=== PATIENT | male | born 1935 | race Caucasian/White ===

== ENCOUNTER 2017-04-06 13:35 | Emergency (ER) | payer OTHER ==
[~2017-04-06] VITALS: Ht 188 cm; Wt 117.8 kg
[2017-04-06 14:26] LABS: INTER. NORMALIZED RATIO 2.5; PROTHROMBIN TIME 28.7 SEC (10.2-12.9)
[2017-04-06 14:59] VITALS: BP 200/82
== END 2017-04-06 15:00 | disposition home or self-care (01) ==
LOC: EME 13:35
PROVIDERS: Nurse Practitioner Family
DX: S40.022A Contusion of left upper arm, initial encounter (principal); V49.40XA Driver injured in collision with unspecified motor vehicles in traffic accident, initial encounter; I10 Essential (primary) hypertension; I25.2 Old myocardial infarction; I48.91 Unspecified atrial fibrillation; Z79.01 Long term (current) use of anticoagulants
CPT/HCPCS: 73060; 85610; 99281; 99283

== ENCOUNTER 2017-12-26 13:12 | Inpatient (IN) | payer OTHER ==
[2017-12-26] VITALS (8 sets, daily range): BP systolic 126–138; BP diastolic 49–64
[~2017-12-26] VITALS: Ht 185.4 cm; Wt 108.5 kg
[2017-12-26 14:28] LABS: BASOPHIL (%) 0.3 % (0-1); EOSINOPHIL (%) 0.3 % (0-5); HEMATOCRIT 22.9 % (38.0-50.0); HEMOGLOBIN 7.1 G/DL (12.5-16.6); IMMATURE GRANULOCYTE (%) 0.6 % (0.0-0.7); LYMPHOCYTE (%) 10.6 % (15-42); LYMPHOCYTE COUNT 1.2 K/uL (1.0-2.8); MCH 23.9 PG (29.0-34.0); MCV 77.1 FL (86-99); MONOCYTE (%) 5.9 % (3-12); MONOCYTE COUNT 0.7 K/uL (0-0.8); NEUTROPHIL (%) 82.3 % (45-76); NEUTROPHIL COUNT 9.2 K/uL (1.8-6.4); PLATELET COUNT 277 K/uL (156-360); RBC DIS.WIDTH-CV 16.6 % (11.8-14.6); RBC DIS.WIDTH-SD 46.7 % (39-53); RED BLOOD COUNT 2.97 M/uL (4.00-5.50); WHITE BLOOD COUNT 11.2 K/uL (4.1-10.2)
[2017-12-26 14:37] LABS: CHLORIDE 108 mEq/L (99-109); INTER. NORMALIZED RATIO 3.4; SODIUM 138 mEq/L (136-147)
[2017-12-26 14:39] LABS: GLUCOSE 119 mg/dL (70-99)
[2017-12-26 14:40] LABS: PTT 35.3 SEC (25-37)
[2017-12-26 14:43] LABS: CREATININE 1.6 mg/dL (0.6-1.3); GFR ESTIMATE (CALCULATED) 44 mL/min/ (58.99-99999)
[2017-12-26 14:44] LABS: UREA NITROGEN (BUN) 78 mg/dL (9-23)
[2017-12-26 14:48] LABS: TROP-I INTERPRETATION NEGATIVE; TROPONIN-I 0.02 ng/mL (0.0-0.30)
[2017-12-26 16:38] LABS: APPEARANCE CLEAR ((CLEAR)); BILIRUBIN NEGATIVE; BLOOD NEGATIVE; COLOR STRAW ((YELLOW)); GLUCOSE (STRIP) NEGATIVE; KETONES 5; LEUKOCYTES NEGATIVE; NITRITE NEGATIVE; PROTEIN (STRIP) NEGATIVE; SPECIFIC GRAVITY 1.017 (1.000-1.030); UCUL ADDED? NO; UROBILINOGEN 0.2 MG/DL (0.2-1.0)
[2017-12-26] MEDS ORDERED: COUMADIN6 MG PO (16:41)
[2017-12-26] MEDS ORDERED: SIMVASTATIN40 MG PO (16:41)
[2017-12-26] MEDS ORDERED: ZESTRIL40 MG PO (16:42)
[2017-12-26] MEDS ORDERED: ALLOPURINOL100 MG PO (16:42)
[2017-12-26] MEDS ORDERED: FUROSEMIDE40 MG PO (16:42)
[2017-12-26] MEDS ORDERED: KLOR-CON M2020 MEQ PO (16:42)
[2017-12-26] MEDS ORDERED: NIFEDIPINE ER60 MG PO (16:42)
[2017-12-26] MEDS ORDERED: ALEVE220 MG PO (16:44)
[2017-12-26] MEDS ORDERED: OSTEO BI-FLEX1 EAC1 PO (16:44)
[2017-12-26] MEDS ORDERED: ADULT ASPIRIN R81 MG PO (16:44)
[2017-12-26] MEDS ORDERED: POTASSIUM GLU2.5 ME1 PO (16:44)
[2017-12-27] VITALS (41 sets, daily range): BP systolic 88–181; BP diastolic 49–92
[2017-12-27 01:30] LABS: HEMATOCRIT 21.7 % (38.0-50.0)
[2017-12-27 01:31] LABS: HEMOGLOBIN 6.9 G/DL (12.5-16.6)
[2017-12-27 09:09] LABS: BASOPHIL (%) 0.3 % (0-1); BASOPHIL COUNT 0.1 K/uL (0-0.1); EOSINOPHIL (%) 0.2 % (0-5); HEMATOCRIT 23.6 % (38.0-50.0); HEMOGLOBIN 7.7 G/DL (12.5-16.6); IMMATURE GRANULOCYTE (%) 0.9 % (0.0-0.7); LYMPHOCYTE (%) 17.7 % (15-42); LYMPHOCYTE COUNT 3.2 K/uL (1.0-2.8); MCH 26.3 PG (29.0-34.0); MCHC 32.6 G/DL (30.0-36.0); MCV 80.5 FL (86-99); MONOCYTE (%) 7.4 % (3-12); MONOCYTE COUNT 1.3 K/uL (0-0.8); NEUTROPHIL (%) 73.5 % (45-76); NEUTROPHIL COUNT 13.2 K/uL (1.8-6.4); PLATELET COUNT 279 K/uL (156-360); RBC DIS.WIDTH-CV 17.1 % (11.8-14.6); RBC DIS.WIDTH-SD 49.4 % (39-53); RED BLOOD COUNT 2.93 M/uL (4.00-5.50); WHITE BLOOD COUNT 17.9 K/uL (4.1-10.2)
[2017-12-27 09:53] LABS: ALBUMIN 2.6 G/DL (3.2-4.8); ALKALINE PHOSPHATASE 36 IU/L (3-129); ALT (GPT) 8 IU/L (3-49); AST (GOT) 10 IU/L (2-34); CHLORIDE 109 MEQ/L (99-109); CREATININE 1.7 MG/DL (0.6-1.3); GFR ESTIMATE (CALCULATED) 41 mL/min/ (58.99-99999); GLUCOSE 146 mg/dL (70-99); POTASSIUM 5.3 MEQ/L (3.7-5.4); SODIUM 136 MEQ/L (136-147); TOTAL BILIRUBIN 0.4 MG/DL (0.0-1.0); TOTAL PROTEIN 4.4 G/DL (6.4-8.3); UREA NITROGEN (BUN) 80 mg/dL (9-23)
[2017-12-27 10:07] LABS: INTER. NORMALIZED RATIO 4.9
[2017-12-27 12:26] LABS: HEMATOCRIT 21.8 % (38.0-50.0); MCV 81.6 FL (86-99)
[2017-12-27 12:27] LABS: HEMOGLOBIN 6.9 G/DL (12.5-16.6)
[2017-12-27 15:27] LABS: HEMOGLOBIN 6.5 G/DL (12.5-16.6)
[2017-12-27 15:31] LABS: INTER. NORMALIZED RATIO 2.1
[2017-12-27 18:30] LABS: HEMATOCRIT 20.4 % (38.0-50.0); MCV 80.6 FL (86-99)
[2017-12-27 18:33] LABS: HEMOGLOBIN 6.7 G/DL (12.5-16.6)
[2017-12-27 18:47] LABS: INTER. NORMALIZED RATIO 1.8
[2017-12-27 23:12] LABS: BICARBONATE 19.2 mEq/L (22-26); CARBOXY HGB 1.3 % (0-5); COMMENTS - BLOOD GASES NA.C+; DEVICE 840; FI02 100 %; INSPIRATION TIME 0.8 seconds; MECHANICAL RATE 16 resp/min; METHEMOGLOBIN 1.6 % (0-1.5); MODE AC/VC+; PCO2 34 mm Hg (35-45); PEEP 5 CM/H20; PO2 370 mm Hg (80-100); SITE RR; TIDAL VOLUME 450 ML; TOTAL RESP RATE 23 resp/min; pH 7.36 (7.35-7.45)
[2017-12-27 23:13] LABS: BASE EXCESS -5.7 mEq/L (-3 to +3)
[2017-12-27 23:48] LABS: INTER. NORMALIZED RATIO 1.6
[2017-12-27 23:51] LABS: PTT 20.8 SEC (25-37)
[2017-12-28] VITALS (34 sets, daily range): BP systolic 87–151; BP diastolic 33–69
[2017-12-28 00:38] LABS: TRIGLYCERIDES 197 MG/DL (Normal: <150)
[2017-12-28 03:24] LABS: HEMATOCRIT 24.3 % (38.0-50.0); HEMOGLOBIN 8.2 G/DL (12.5-16.6); MCH 27.2 PG (29.0-34.0); MCHC 33.7 G/DL (30.0-36.0); MCV 80.7 FL (86-99); NRBC (%) 0.1 /100 WBC (0-0); RBC DIS.WIDTH-CV 16.7 % (11.8-14.6); RBC DIS.WIDTH-SD 48.5 % (39-53); RED BLOOD COUNT 3.01 M/uL (4.00-5.50)
[2017-12-28 05:08] LABS: PLAT.SUFFICIENCY ADEQUATE
[2017-12-28 05:22] LABS: PLATELET COUNT 177 K/uL (156-360)
[2017-12-28 06:49] LABS: BASOPHIL (%) 0.3 % (0-1); EOSINOPHIL (%) 0.5 % (0-5); EOSINOPHIL COUNT 0.1 K/uL (0-0.3); HEMATOCRIT 22.3 % (38.0-50.0); HEMOGLOBIN 7.2 G/DL (12.5-16.6); LYMPHOCYTE (%) 11.4 % (15-42); LYMPHOCYTE COUNT 1.7 K/uL (1.0-2.8); MCH 26.4 PG (29.0-34.0); MCHC 32.3 G/DL (30.0-36.0); MCV 81.7 FL (86-99); MONOCYTE (%) 11.8 % (3-12); MONOCYTE COUNT 1.7 K/uL (0-0.8); NRBC (%) 0.3 /100 WBC (0-0); PLATELET COUNT 167 K/uL (156-360); RBC DIS.WIDTH-CV 16.9 % (11.8-14.6); RBC DIS.WIDTH-SD 49.3 % (39-53); RED BLOOD COUNT 2.73 M/uL (4.00-5.50); WHITE BLOOD COUNT 14.6 K/uL (4.1-10.2)
[2017-12-28 06:52] LABS: INTER. NORMALIZED RATIO 1.4
[2017-12-28 06:54] LABS: PTT 25.8 SEC (25-37)
[2017-12-28 07:08] LABS: ALBUMIN 2.7 G/DL (3.2-4.8); ALKALINE PHOSPHATASE 41 IU/L (3-129); ALT (GPT) 9 IU/L (3-49); AST (GOT) 11 IU/L (2-34); CHLORIDE 107 MEQ/L (99-109); CREATININE 2.1 MG/DL (0.6-1.3); GFR ESTIMATE (CALCULATED) 32 mL/min/ (58.99-99999); GLUCOSE 114 mg/dL (70-99); POTASSIUM 4.4 MEQ/L (3.7-5.4); SODIUM 139 MEQ/L (136-147); TOTAL PROTEIN 4.6 G/DL (6.4-8.3); UREA NITROGEN (BUN) 81 mg/dL (9-23)
[2017-12-28 07:09] LABS: TOTAL BILIRUBIN 0.8 MG/DL (0.0-1.0)
[2017-12-28 12:31] LABS: HEMOGLOBIN 7.6 G/DL (12.5-16.6); MCV 82.7 FL (86-99)
[2017-12-28 18:44] LABS: HEMATOCRIT 25.5 % (38.0-50.0); HEMOGLOBIN 8.2 G/DL (12.5-16.6); MCV 83.3 FL (86-99)
[2017-12-29] VITALS (20 sets, daily range): BP systolic 112–156; BP diastolic 46–75
[2017-12-29 00:58] LABS: HEMATOCRIT 24.3 % (38.0-50.0); HEMOGLOBIN 8.2 G/DL (12.5-16.6); MCV 82.7 FL (86-99)
[2017-12-29 05:34] LABS: BASOPHIL (%) 0.6 % (0-1); BASOPHIL COUNT 0.1 K/uL (0-0.1); EOSINOPHIL (%) 1.6 % (0-5); EOSINOPHIL COUNT 0.2 K/uL (0-0.3); HEMATOCRIT 25.1 % (38.0-50.0); HEMOGLOBIN 8.2 G/DL (12.5-16.6); LYMPHOCYTE (%) 15.4 % (15-42); LYMPHOCYTE COUNT 1.4 K/uL (1.0-2.8); MCH 27.5 PG (29.0-34.0); MCHC 32.7 G/DL (30.0-36.0); MCV 84.2 FL (86-99); MONOCYTE (%) 12.4 % (3-12); MONOCYTE COUNT 1.2 K/uL (0-0.8); NEUTROPHIL COUNT 6.4 K/uL (1.8-6.4); PLATELET COUNT 143 K/uL (156-360); RBC DIS.WIDTH-SD 52.1 % (39-53); RED BLOOD COUNT 2.98 M/uL (4.00-5.50); WHITE BLOOD COUNT 9.3 K/uL (4.1-10.2)
[2017-12-29 05:51] LABS: INTER. NORMALIZED RATIO 1.3
[2017-12-29 05:54] LABS: PTT 25.2 SEC (25-37)
[2017-12-29 06:06] LABS: ALBUMIN 2.8 G/DL (3.2-4.8); ALKALINE PHOSPHATASE 48 IU/L (3-129); ALT (GPT) 8 IU/L (3-49); AST (GOT) 10 IU/L (2-34); CHLORIDE 108 MEQ/L (99-109); GFR ESTIMATE (CALCULATED) 34 mL/min/ (58.99-99999); GLUCOSE 150 mg/dL (70-99); POTASSIUM 4.6 MEQ/L (3.7-5.4); SODIUM 141 MEQ/L (136-147); TOTAL BILIRUBIN 0.8 MG/DL (0.0-1.0); TOTAL PROTEIN 4.8 G/DL (6.4-8.3); UREA NITROGEN (BUN) 54 mg/dL (9-23)
[2017-12-29 11:52] LABS: HEMATOCRIT 25.2 % (38.0-50.0); HEMOGLOBIN 8.1 G/DL (12.5-16.6); MCV 85.4 FL (86-99)
[2017-12-29 19:56] LABS: HEMATOCRIT 24.7 % (38.0-50.0); MCV 84.9 FL (86-99)
[2017-12-30] VITALS (14 sets, daily range): BP systolic 130–166; BP diastolic 59–72
[2017-12-30 05:56] LABS: BASOPHIL (%) 0.4 % (0-1); EOSINOPHIL COUNT 0.3 K/uL (0-0.3); HEMOGLOBIN 7.7 G/DL (12.5-16.6); IMMATURE GRANULOCYTE (%) 1.1 % (0.0-0.7); LYMPHOCYTE (%) 17.7 % (15-42); LYMPHOCYTE COUNT 1.6 K/uL (1.0-2.8); MCH 27.5 PG (29.0-34.0); MCHC 32.1 G/DL (30.0-36.0); MCV 85.7 FL (86-99); MONOCYTE (%) 11.7 % (3-12); MONOCYTE COUNT 1.1 K/uL (0-0.8); NEUTROPHIL (%) 66.1 % (45-76); NEUTROPHIL COUNT 5.9 K/uL (1.8-6.4); PLATELET COUNT 149 K/uL (156-360); RBC DIS.WIDTH-SD 52.3 % (39-53)
[2017-12-30 06:36] LABS: ALBUMIN 2.8 G/DL (3.2-4.8); ALKALINE PHOSPHATASE 42 IU/L (3-129); ALT (GPT) 8 IU/L (3-49); AST (GOT) 11 IU/L (2-34); CHLORIDE 108 MEQ/L (99-109); CREATININE 1.6 MG/DL (0.6-1.3); GFR ESTIMATE (CALCULATED) 44 mL/min/ (58.99-99999); GLUCOSE 119 mg/dL (70-99); POTASSIUM 4.1 MEQ/L (3.7-5.4); SODIUM 141 MEQ/L (136-147); TOTAL PROTEIN 4.8 G/DL (6.4-8.3); UREA NITROGEN (BUN) 42 mg/dL (9-23)
[2017-12-30 06:46] LABS: TOTAL BILIRUBIN 0.6 MG/DL (0.0-1.0)
[2017-12-30 13:05] LABS: HEMATOCRIT 26.4 % (38.0-50.0); HEMOGLOBIN 8.2 G/DL (12.5-16.6); MCV 86.8 FL (86-99)
[2017-12-30 20:14] LABS: HEMATOCRIT 28.6 % (38.0-50.0); HEMOGLOBIN 9.3 G/DL (12.5-16.6); MCV 84.6 FL (86-99)
[2017-12-31] VITALS (7 sets, daily range): BP systolic 110–157; BP diastolic 59–72
[2017-12-31 05:26] LABS: BASOPHIL (%) 0.7 % (0-1); BASOPHIL COUNT 0.1 K/uL (0-0.1); EOSINOPHIL (%) 3.4 % (0-5); EOSINOPHIL COUNT 0.3 K/uL (0-0.3); HEMATOCRIT 29.7 % (38.0-50.0); HEMOGLOBIN 9.5 G/DL (12.5-16.6); LYMPHOCYTE (%) 19.4 % (15-42); LYMPHOCYTE COUNT 1.8 K/uL (1.0-2.8); MCH 27.3 PG (29.0-34.0); MCV 85.3 FL (86-99); MONOCYTE (%) 9.6 % (3-12); MONOCYTE COUNT 0.9 K/uL (0-0.8); NEUTROPHIL (%) 65.9 % (45-76); PLATELET COUNT 178 K/uL (156-360); RBC DIS.WIDTH-CV 16.7 % (11.8-14.6); RBC DIS.WIDTH-SD 51.1 % (39-53); WHITE BLOOD COUNT 9.1 K/uL (4.1-10.2)
[2017-12-31 05:32] LABS: RED BLOOD COUNT 3.48 M/uL (4.00-5.50)
[2017-12-31 05:53] LABS: CHLORIDE 106 MEQ/L (99-109); CREATININE 1.4 MG/DL (0.6-1.3); GFR ESTIMATE (CALCULATED) 52 mL/min/ (58.99-99999); GLUCOSE 96 mg/dL (70-99); SODIUM 141 MEQ/L (136-147); UREA NITROGEN (BUN) 31 mg/dL (9-23)
[2018-01-01 03:28] VITALS: BP 134/60
[2018-01-01 05:58] LABS: BASOPHIL (%) 0.5 % (0-1); EOSINOPHIL (%) 2.5 % (0-5); EOSINOPHIL COUNT 0.2 K/uL (0-0.3); HEMATOCRIT 27.8 % (38.0-50.0); HEMOGLOBIN 8.9 G/DL (12.5-16.6); LYMPHOCYTE (%) 17.9 % (15-42); LYMPHOCYTE COUNT 1.6 K/uL (1.0-2.8); MCH 27.3 PG (29.0-34.0); MCV 85.3 FL (86-99); MONOCYTE (%) 10.1 % (3-12); MONOCYTE COUNT 0.9 K/uL (0-0.8); NEUTROPHIL COUNT 5.9 K/uL (1.8-6.4); PLATELET COUNT 169 K/uL (156-360); RBC DIS.WIDTH-CV 16.7 % (11.8-14.6); RBC DIS.WIDTH-SD 51.2 % (39-53); RED BLOOD COUNT 3.26 M/uL (4.00-5.50); WHITE BLOOD COUNT 8.7 K/uL (4.1-10.2)
[2018-01-01 06:23] LABS: CHLORIDE 107 MEQ/L (99-109); CREATININE 1.3 MG/DL (0.6-1.3); GFR ESTIMATE (CALCULATED) 56 mL/min/ (58.99-99999); GLUCOSE 91 mg/dL (70-99); POTASSIUM 3.8 MEQ/L (3.7-5.4); SODIUM 138 MEQ/L (136-147); UREA NITROGEN (BUN) 22 mg/dL (9-23)
[2018-01-01 06:45] VITALS: BP 159/69
[2018-01-01 11:26] VITALS: BP 139/66
[2018-01-01 15:04] VITALS: BP 156/64
[2018-01-01 23:19] VITALS: BP 152/87
[2018-01-02 03:43] VITALS: BP 149/69
[2018-01-02 06:14] LABS: BASOPHIL (%) 0.5 % (0-1); EOSINOPHIL (%) 3.1 % (0-5); EOSINOPHIL COUNT 0.3 K/uL (0-0.3); HEMATOCRIT 29.2 % (38.0-50.0); HEMOGLOBIN 9.3 G/DL (12.5-16.6); IMMATURE GRANULOCYTE (%) 0.8 % (0.0-0.7); LYMPHOCYTE (%) 17.1 % (15-42); LYMPHOCYTE COUNT 1.4 K/uL (1.0-2.8); MCH 27.4 PG (29.0-34.0); MCHC 31.8 G/DL (30.0-36.0); MCV 86.1 FL (86-99); MONOCYTE (%) 9.9 % (3-12); MONOCYTE COUNT 0.8 K/uL (0-0.8); NEUTROPHIL (%) 68.6 % (45-76); NEUTROPHIL COUNT 5.8 K/uL (1.8-6.4); PLATELET COUNT 176 K/uL (156-360); RBC DIS.WIDTH-CV 16.7 % (11.8-14.6); RBC DIS.WIDTH-SD 51.9 % (39-53); RED BLOOD COUNT 3.39 M/uL (4.00-5.50); WHITE BLOOD COUNT 8.4 K/uL (4.1-10.2)
[2018-01-02 06:40] LABS: CHLORIDE 107 MEQ/L (99-109); CREATININE 1.4 MG/DL (0.6-1.3); GFR ESTIMATE (CALCULATED) 52 mL/min/ (58.99-99999); GLUCOSE 94 mg/dL (70-99); POTASSIUM 4.2 MEQ/L (3.7-5.4); SODIUM 140 MEQ/L (136-147); UREA NITROGEN (BUN) 19 mg/dL (9-23)
[2018-01-02 06:54] VITALS: BP 158/68
[2018-01-02 10:40] VITALS: BP 162/68
[2018-01-02 14:50] VITALS: BP 156/67
[2018-01-02 16:56] LABS: HEMATOCRIT 30.2 % (38.0-50.0); HEMOGLOBIN 9.5 G/DL (12.5-16.6); MCH 27.1 PG (29.0-34.0); MCHC 31.5 G/DL (30.0-36.0); PLATELET COUNT 190 K/uL (156-360); RBC DIS.WIDTH-CV 16.7 % (11.8-14.6); RBC DIS.WIDTH-SD 52.3 % (39-53); RED BLOOD COUNT 3.51 M/uL (4.00-5.50); WHITE BLOOD COUNT 9.6 K/uL (4.1-10.2)
[2018-01-02 20:16] VITALS: BP 156/70
[2018-01-03] VITALS (7 sets, daily range): BP systolic 114–158; BP diastolic 50–70
[2018-01-03 06:07] LABS: BASOPHIL (%) 0.7 % (0-1); BASOPHIL COUNT 0.1 K/uL (0-0.1); EOSINOPHIL (%) 2.4 % (0-5); EOSINOPHIL COUNT 0.2 K/uL (0-0.3); HEMATOCRIT 28.8 % (38.0-50.0); HEMOGLOBIN 9.2 G/DL (12.5-16.6); LYMPHOCYTE (%) 15.1 % (15-42); LYMPHOCYTE COUNT 1.3 K/uL (1.0-2.8); MCH 27.5 PG (29.0-34.0); MCHC 31.9 G/DL (30.0-36.0); MCV 86.2 FL (86-99); MONOCYTE (%) 9.1 % (3-12); MONOCYTE COUNT 0.8 K/uL (0-0.8); NEUTROPHIL (%) 71.7 % (45-76); NEUTROPHIL COUNT 6.3 K/uL (1.8-6.4); PLATELET COUNT 177 K/uL (156-360); RBC DIS.WIDTH-CV 16.6 % (11.8-14.6); RBC DIS.WIDTH-SD 51.8 % (39-53); RED BLOOD COUNT 3.34 M/uL (4.00-5.50); WHITE BLOOD COUNT 8.8 K/uL (4.1-10.2)
[2018-01-03 06:33] LABS: CHLORIDE 106 MEQ/L (99-109); CREATININE 1.4 MG/DL (0.6-1.3); GFR ESTIMATE (CALCULATED) 52 mL/min/ (58.99-99999); GLUCOSE 92 mg/dL (70-99); POTASSIUM 4.2 MEQ/L (3.7-5.4); SODIUM 140 MEQ/L (136-147); UREA NITROGEN (BUN) 19 mg/dL (9-23)
[2018-01-04] VITALS (7 sets, daily range): BP systolic 128–160; BP diastolic 65–71
[2018-01-04 06:01] LABS: BASOPHIL (%) 0.7 % (0-1); BASOPHIL COUNT 0.1 K/uL (0-0.1); EOSINOPHIL (%) 2.3 % (0-5); EOSINOPHIL COUNT 0.2 K/uL (0-0.3); HEMATOCRIT 29.8 % (38.0-50.0); HEMOGLOBIN 9.5 G/DL (12.5-16.6); IMMATURE GRANULOCYTE (%) 1.1 % (0.0-0.7); LYMPHOCYTE (%) 17.8 % (15-42); LYMPHOCYTE COUNT 1.6 K/uL (1.0-2.8); MCH 27.5 PG (29.0-34.0); MCHC 31.9 G/DL (30.0-36.0); MCV 86.4 FL (86-99); MONOCYTE (%) 9.2 % (3-12); MONOCYTE COUNT 0.8 K/uL (0-0.8); NEUTROPHIL (%) 68.9 % (45-76); NEUTROPHIL COUNT 6.2 K/uL (1.8-6.4); PLATELET COUNT 211 K/uL (156-360); RBC DIS.WIDTH-CV 16.5 % (11.8-14.6); RBC DIS.WIDTH-SD 51.6 % (39-53); RED BLOOD COUNT 3.45 M/uL (4.00-5.50)
[2018-01-04 06:19] LABS: CHLORIDE 104 MEQ/L (99-109); CREATININE 1.4 MG/DL (0.6-1.3); GFR ESTIMATE (CALCULATED) 52 mL/min/ (58.99-99999); GLUCOSE 86 mg/dL (70-99); POTASSIUM 4.2 MEQ/L (3.7-5.4); SODIUM 138 MEQ/L (136-147); UREA NITROGEN (BUN) 17 mg/dL (9-23)
[2018-01-05] VITALS (7 sets, daily range): BP systolic 134–173; BP diastolic 61–77
[2018-01-05 06:39] LABS: HEMATOCRIT 29.3 % (38.0-50.0); HEMOGLOBIN 9.2 G/DL (12.5-16.6); MCH 26.9 PG (29.0-34.0); MCHC 31.4 G/DL (30.0-36.0); MCV 85.7 FL (86-99); PLATELET COUNT 198 K/uL (156-360); RBC DIS.WIDTH-CV 16.3 % (11.8-14.6); RED BLOOD COUNT 3.42 M/uL (4.00-5.50); WHITE BLOOD COUNT 8.7 K/uL (4.1-10.2)
[2018-01-06 00:53] LABS: APPEARANCE CLEAR ((CLEAR)); BILIRUBIN NEGATIVE; BLOOD NEGATIVE; COLOR YELLOW ((YELLOW)); GLUCOSE (STRIP) NEGATIVE; KETONES NEGATIVE; LEUKOCYTES SMALL; NITRITE NEGATIVE; PROTEIN (STRIP) NEGATIVE; SPECIFIC GRAVITY 1.009 (1.000-1.030); UROBILINOGEN 0.2 MG/DL (0.2-1.0)
[2018-01-06 00:55] LABS: BACTERIA RARE /HPF; EPITHELIAL CELLS RARE /HPF; MUCUS TRACE /LPF; RED BLOOD CELLS 0-5 /HPF (0-5)
[2018-01-06 03:57] VITALS: BP 139/76
[2018-01-06 06:32] LABS: BASOPHIL (%) 0.7 % (0-1); BASOPHIL COUNT 0.1 K/uL (0-0.1); EOSINOPHIL (%) 1.8 % (0-5); EOSINOPHIL COUNT 0.2 K/uL (0-0.3); HEMATOCRIT 27.8 % (38.0-50.0); HEMOGLOBIN 8.8 G/DL (12.5-16.6); IMMATURE GRANULOCYTE (%) 0.6 % (0.0-0.7); LYMPHOCYTE (%) 15.2 % (15-42); LYMPHOCYTE COUNT 1.4 K/uL (1.0-2.8); MCH 27.2 PG (29.0-34.0); MCHC 31.7 G/DL (30.0-36.0); MCV 85.8 FL (86-99); MONOCYTE (%) 11.1 % (3-12); NEUTROPHIL (%) 70.6 % (45-76); NEUTROPHIL COUNT 6.3 K/uL (1.8-6.4); PLATELET COUNT 210 K/uL (156-360); RBC DIS.WIDTH-CV 16.3 % (11.8-14.6); RBC DIS.WIDTH-SD 51.2 % (39-53); RED BLOOD COUNT 3.24 M/uL (4.00-5.50)
[2018-01-06 06:55] VITALS: BP 143/64
[2018-01-06 07:01] LABS: CHLORIDE 106 MEQ/L (99-109); CREATININE 1.4 MG/DL (0.6-1.3); GFR ESTIMATE (CALCULATED) 52 mL/min/ (58.99-99999); GLUCOSE 104 mg/dL (70-99); POTASSIUM 4.3 MEQ/L (3.7-5.4); SODIUM 138 MEQ/L (136-147); UREA NITROGEN (BUN) 20 mg/dL (9-23); URIC ACID 9.1 mg/dL (3.1-9.2)
[2018-01-06 08:05] LABS: THYROTROPIN (TSH) 0.84 MIU/L (0.4-5.5)
[2018-01-06 10:45] VITALS: BP 163/69
[2018-01-06 15:45] VITALS: BP 156/68
[2018-01-06 20:06] VITALS: BP 165/67
[2018-01-07 00:13] VITALS: BP 114/50
[2018-01-07 03:43] VITALS: BP 134/63
[2018-01-07 05:57] LABS: BASOPHIL (%) 0.5 % (0-1); BASOPHIL COUNT 0.1 K/uL (0-0.1); EOSINOPHIL (%) 1.3 % (0-5); EOSINOPHIL COUNT 0.2 K/uL (0-0.3); HEMATOCRIT 30.4 % (38.0-50.0); HEMOGLOBIN 9.8 G/DL (12.5-16.6); IMMATURE GRANULOCYTE (%) 0.5 % (0.0-0.7); LYMPHOCYTE (%) 12.6 % (15-42); LYMPHOCYTE COUNT 1.6 K/uL (1.0-2.8); MCH 27.3 PG (29.0-34.0); MCHC 32.2 G/DL (30.0-36.0); MCV 84.7 FL (86-99); MONOCYTE COUNT 1.2 K/uL (0-0.8); NEUTROPHIL (%) 76.1 % (45-76); NEUTROPHIL COUNT 9.8 K/uL (1.8-6.4); RBC DIS.WIDTH-CV 16.4 % (11.8-14.6); RBC DIS.WIDTH-SD 50.9 % (39-53); RED BLOOD COUNT 3.59 M/uL (4.00-5.50); WHITE BLOOD COUNT 12.8 K/uL (4.1-10.2)
[2018-01-07 06:01] LABS: PLATELET COUNT 285 K/uL (156-360)
[2018-01-07 06:18] LABS: CHLORIDE 103 MEQ/L (99-109); CREATININE 1.5 MG/DL (0.6-1.3); GFR ESTIMATE (CALCULATED) 48 mL/min/ (58.99-99999); GLUCOSE 100 mg/dL (70-99); POTASSIUM 4.3 MEQ/L (3.7-5.4); SODIUM 135 MEQ/L (136-147); UREA NITROGEN (BUN) 22 mg/dL (9-23)
[2018-01-07 06:55] VITALS: BP 136/63
[2018-01-07 11:15] VITALS: BP 177/72
[2018-01-07 15:15] VITALS: BP 144/57
[2018-01-07] MEDS ORDERED: TRAMADOL HCL50 MG PO (18:54)
[2018-01-07] MEDS ORDERED: Tylenol GT (18:55)
[2018-01-07] MEDS ORDERED: CLONAZEPAM0.5 MG PO (18:56)
[2018-01-07] MEDS ORDERED: ALLOPURINOL100 MG PO (18:57)
[2018-01-07] MEDS ORDERED: PANTOPRAZOLE SO40 MG PO (18:57)
[2018-01-07 19:14] VITALS: BP 159/69
== END 2018-01-07 19:45 | DRG 378 ==
LOC: EME 13:12 → 5EAST 17:11 → 4WEST 17:11 → 4EAST 17:11 → EDOF 17:11 → ENRESERV 17:16 → 4EAST 19:35 → ENRESERV 12-27 19:10 → 4WEST 12-27 19:56 → CANRESERV 12-27 20:06 → ENRESERV 12-27 20:06 → 4WEST 12-27 20:06 → ENRESERV 12-29 15:39 → 5EAST 12-29 17:34
PROVIDERS: Emergency Medicine; Family Medicine; Family Medicine Sports Medicine; Internal Medicine Critical Care Medicine; Internal Medicine Gastroenterology; Specialist; Surgery
PROC: 30233N1 Transfusion of Nonautologous Red Blood Cells into Peripheral Vein, Percutaneous Approach (ICD-10-PCS; principal; 2017-12-26)
PROC: 3E0G8GC Introduction of Other Therapeutic Substance into Upper GI, Via Natural or Artificial Opening Endoscopic (ICD-10-PCS; 2017-12-27)
PROC: 0BH17EZ Insertion of Endotracheal Airway into Trachea, Via Natural or Artificial Opening (ICD-10-PCS; 2017-12-28)
PROC: 5A1935Z Respiratory Ventilation, Less than 24 Consecutive Hours (ICD-10-PCS; 2017-12-28)
PROC: 0DJ08ZZ Inspection of Upper Intestinal Tract, Via Natural or Artificial Opening Endoscopic (ICD-10-PCS; 2018-01-03)
PROC: 0DJD8ZZ Inspection of Lower Intestinal Tract, Via Natural or Artificial Opening Endoscopic (ICD-10-PCS; 2018-01-04)
DX: K92.2 Gastrointestinal hemorrhage, unspecified (principal); I25.10 Atherosclerotic heart disease of native coronary artery without angina pectoris; E66.9 Obesity, unspecified; K21.9 Gastro-esophageal reflux disease without esophagitis; G89.29 Other chronic pain; M54.9 Dorsalgia, unspecified; E78.5 Hyperlipidemia, unspecified; K63.5 Polyp of colon; K64.8 Other hemorrhoids; Z79.01 Long term (current) use of anticoagulants; I48.91 Unspecified atrial fibrillation; I25.2 Old myocardial infarction; E87.5 Hyperkalemia; R55 Syncope and collapse; K29.60 Other gastritis without bleeding; K31.5 Obstruction of duodenum; K26.9 Duodenal ulcer, unspecified as acute or chronic, without hemorrhage or perforation; K28.9 Gastrojejunal ulcer, unspecified as acute or chronic, without hemorrhage or perforation; K57.30 Diverticulosis of large intestine without perforation or abscess without bleeding; I49.5 Sick sinus syndrome; I48.2 Chronic atrial fibrillation; N17.9 Acute kidney failure, unspecified; M10.9 Gout, unspecified; M19.90 Unspecified osteoarthritis, unspecified site; I51.7 Cardiomegaly; I73.9 Peripheral vascular disease, unspecified; Z79.899 Other long term (current) drug therapy; I11.9 Hypertensive heart disease without heart failure; D50.0 Iron deficiency anemia secondary to blood loss (chronic)
CPT/HCPCS: 36600; 70450; 71045; 71046; 73610; 73630; 74019; 74176; 80048; 80053; 81003; 82803; 82948; 84443; 84478; 84484; 84550; 85014; 85018; 85025; 85027; 85610; 85730; 86850; 86900; 86901; 86920; 87070; 87076; 87185; 87205; 87641; 93005; 93306; 93970; 93971; 94002; 94003; 94640; 94640 76; 94760; 94799; 99202; 99281; 99285; C9113; J1940; J2354; J2405; J2704; J2765; J3010; J3430; J7030; J7050; J7120; P9016; P9017

== ENCOUNTER → 2018-02-28 | Outpatient (CLI) | payer OTHER ==
[~2018-02-28] VITALS: Ht 185.4 cm; Wt 104.8 kg
[~2018-02-28] MED LIST: ADULT ASPIRIN R81 MG PO; ALEVE220 MG PO; ALLOPURINOL100 MG PO; CLONAZEPAM0.5 MG PO; COUMADIN6 MG PO; FUROSEMIDE40 MG PO; KLOR-CON M2020 MEQ PO; NIFEDIPINE ER60 MG PO; OSTEO BI-FLEX1 EAC1 PO; PANTOPRAZOLE SO40 MG PO; POTASSIUM GLU2.5 ME1 PO; SIMVASTATIN40 MG PO; TRAMADOL HCL50 MG PO; TYLENOL EXTRA500 MG PO; Tylenol GT; ZESTRIL40 MG PO
== END | disposition home or self-care (01) ==
LOC: AMB 13:25
DX: K31.5 Obstruction of duodenum (principal); K92.2 Gastrointestinal hemorrhage, unspecified; Z87.19 Personal history of other diseases of the digestive system; I48.91 Unspecified atrial fibrillation; M19.90 Unspecified osteoarthritis, unspecified site; E78.5 Hyperlipidemia, unspecified; I10 Essential (primary) hypertension; I25.2 Old myocardial infarction; Z79.01 Long term (current) use of anticoagulants
CPT/HCPCS: 88305; 88342 TC

== ENCOUNTER 2018-03-17 15:33 | Emergency (ER) | payer OTHER ==
[~2018-03-17] VITALS: Ht 188 cm; Wt 104.2 kg
[2018-03-17 16:38] LABS: APPEARANCE CLEAR ((CLEAR)); BILIRUBIN NEGATIVE; BLOOD NEGATIVE; COLOR YELLOW ((YELLOW)); GLUCOSE (STRIP) NEGATIVE; KETONES NEGATIVE; LEUKOCYTES NEGATIVE; NITRITE NEGATIVE; PROTEIN (STRIP) NEGATIVE; SPECIFIC GRAVITY 1.012 (1.000-1.030); UCUL ADDED? NO; UROBILINOGEN 0.2 MG/DL (0.2-1.0)
[2018-03-17 16:59] LABS: BASOPHIL (%) 0.7 % (0-1); BASOPHIL COUNT 0.1 K/uL (0-0.1); EOSINOPHIL (%) 0.9 % (0-5); EOSINOPHIL COUNT 0.1 K/uL (0-0.3); HEMATOCRIT 35.5 % (38.0-50.0); HEMOGLOBIN 11.5 G/DL (12.5-16.6); IMMATURE GRANULOCYTE (%) 0.5 % (0.0-0.7); LYMPHOCYTE (%) 13.2 % (15-42); LYMPHOCYTE COUNT 1.6 K/uL (1.0-2.8); MCH 25.4 PG (29.0-34.0); MCHC 32.4 G/DL (30.0-36.0); MCV 78.5 FL (86-99); MONOCYTE (%) 5.3 % (3-12); MONOCYTE COUNT 0.7 K/uL (0-0.8); NEUTROPHIL (%) 79.4 % (45-76); NEUTROPHIL COUNT 9.8 K/uL (1.8-6.4); PLATELET COUNT 283 K/uL (156-360); RBC DIS.WIDTH-SD 53.3 % (39-53); RED BLOOD COUNT 4.52 M/uL (4.00-5.50); WHITE BLOOD COUNT 12.4 K/uL (4.1-10.2)
[2018-03-17 17:13] LABS: TROP-I INTERPRETATION NEGATIVE; TROPONIN-I 0.02 ng/mL (0.0-0.30)
[2018-03-17 17:26] LABS: ALBUMIN 3.9 g/dL (3.2-4.8); CHLORIDE 98 mEq/L (99-109); POTASSIUM 4.8 mEq/L (3.7-5.4); SODIUM 133 mEq/L (136-147)
[2018-03-17 17:28] LABS: GLUCOSE 115 mg/dL (70-99); TOTAL PROTEIN 6.8 g/dL (6.4-8.3)
[2018-03-17 17:30] LABS: TOTAL BILIRUBIN 0.7 mg/dL (0.0-1.0)
[2018-03-17 17:32] LABS: ALKALINE PHOSPHATASE 71 IU/L (3-129); CREATININE 1.5 mg/dL (0.6-1.3); GFR ESTIMATE (CALCULATED) 48 mL/min/ (58.99-99999)
[2018-03-17 17:33] LABS: UREA NITROGEN (BUN) 36 mg/dL (9-23)
[2018-03-17 17:34] LABS: AST (GOT) 12 IU/L (2-34); DIRECT BILIRUBIN 0.3 mg/dL (0.0-0.3)
[2018-03-17 17:35] LABS: ALT (GPT) 7 IU/L (3-49); LIPASE 200 U/L (1.0-51.0)
[2018-03-17 18:50] LABS: INTER. NORMALIZED RATIO 1.3
[2018-03-17 18:52] LABS: PTT 30.2 SEC (25-37)
[2018-03-18] MEDS ORDERED: AUGMENTIN875 MG PO (00:04)
[2018-03-18] MEDS ORDERED: TYLENOL WITH C1 EACH PO (00:09)
[2018-03-18 00:39] VITALS: BP 123/69
== END 2018-03-18 00:39 | disposition home or self-care (01) ==
LOC: EME 15:33
PROVIDERS: Emergency Medicine
DX: K52.9 Noninfective gastroenteritis and colitis, unspecified (principal); Z87.11 Personal history of peptic ulcer disease; I48.91 Unspecified atrial fibrillation; I25.2 Old myocardial infarction; I25.10 Atherosclerotic heart disease of native coronary artery without angina pectoris; M10.9 Gout, unspecified; Z88.5 Allergy status to narcotic agent
CPT/HCPCS: 74174; 74176; 80048; 80076; 81003; 83605; 83690; 83880; 84484; 85025; 85610; 85730; 86850; 86900; 86901; 99281; 99285; J2270; J7040